=== PATIENT | female | born 1980 | race Caucasian/White ===

== ENCOUNTER 2017-10-24 11:47 | Emergency (ER) | payer MEDICARE, MEDICAID ==
[~2017-10-24] VITALS: Ht 5535.5 cm; Wt 102.0 kg
[~2017-10-24 11:47] MED LIST: CEPH-357 PO; CLIN-80 PO; CYCL-1 PO; HYDR-569 PO; IBUP-1986 PO; ONDA8TAB9 PO; PANT40TA39 PO; PHEN-824 PO; PRED50TA PO; WEL75T PO; ZIPR20CA2 PO
[2017-10-24] MEDS ORDERED: PRED5TAB PO (12:34)
[2017-10-24] MEDS ORDERED: AZIT250T PO (12:34)
[2017-10-24 13:05] VITALS: BP 125/92
== END 2017-10-24 13:07 | disposition home or self-care (01) ==
LOC: ER 11:47
DX: J02.9 Acute pharyngitis, unspecified (principal); J20.9 Acute bronchitis, unspecified; J01.10 Acute frontal sinusitis, unspecified; J01.00 Acute maxillary sinusitis, unspecified; Z91.040 Latex allergy status; Z79.899 Other long term (current) drug therapy
CPT/HCPCS: 99283

== ENCOUNTER 2018-01-13 18:47 | Emergency (ER) | payer MEDICARE, MEDICAID ==
[~2018-01-13] VITALS: Ht 167.6 cm; Wt 96.5 kg
[~2018-01-13 18:47] MED LIST changes: -CLIN-80 PO; +CLIN300C85 PO; +PRED5TAB PO
[2018-01-13] MEDS ORDERED: dexamethasone sod phosphate 10mg/ml inj IV STA (19:07)
[2018-01-13] MEDS ORDERED: famotidine/PF 10 mg/ml inj IV ONE (19:10)
[2018-01-13] MEDS ORDERED: normal saline 1000ML IV soln IVB ONE (19:10)
[2018-01-13] MEDS ORDERED: EPIN0.3P8 IM (19:26)
[2018-01-13] MEDS ORDERED: PRED20TA PO (19:26)
[2018-01-13 20:28] VITALS: BP 122/67
== END 2018-01-13 20:29 | disposition home or self-care (01) ==
LOC: ER 18:48
DX: T63.441A Toxic effect of venom of bees, accidental (unintentional), initial encounter (principal); Z88.0 Allergy status to penicillin; Z88.8 Allergy status to other drugs, medicaments and biological substances; Z88.1 Allergy status to other antibiotic agents; Z91.040 Latex allergy status
CPT/HCPCS: 93005; 96361; 96374; 96375; 99284; J1100; J3490; J7030

== ENCOUNTER 2018-02-19 06:49 | Emergency (ER) | payer MEDICARE, MEDICAID ==
[~2018-02-19] VITALS: Ht 578.2 cm; Wt 105.0 kg
[~2018-02-19 06:49] MED LIST changes: +EPIN0.3P8 IM
[2018-02-19] MEDS ORDERED: magnesium citrate 296ml oral solution PO ONE (07:05)
[2018-02-19] MEDS ORDERED: normal saline 1000ML IV soln IVB ONE ×2 (07:05→10:45)
[2018-02-19] MEDS ORDERED: diazepam 5mg tablet PO ONE (07:45)
[2018-02-19 08:13] LABS: CLARITY,URINE CLOUDY (Clear); COLOR,URINE STRAW (Yellow); GLUCOSE, URINE NEGATIVE (Neg); KETONES,URINE NEGATIVE (Neg); LEUKOCYTE ESTERASE ,URINE LARGE (Neg); NITRITES, URINE POSITIVE (Neg); OCCULT BLOOD,URINE LARGE (Neg); PROTEIN,URINE 30 mg/dl (Neg); URINE HCG NEGATIVE (NEG); UROBILINOGEN,URINE 0.2 E.U/dL (0.2-1.0)
[2018-02-19 08:17] LABS: UA COLLECTION TYPE VOIDED
[2018-02-19 08:22] LABS: BACTERIA,URINE 1+ /HPF (Neg); MUCUS STRANDS NONE SEEN /LPF (Neg); SQUAMOUS EPITHELIAL CELL,UR FEW /LPF (FEW); WBC CLUMPS,URINE MANY /HPF (NEGATIVE); WBC,URINE TNTC /HPF (0-4)
[2018-02-19] MEDS ORDERED: METH500T PO ×2 (09:08→11:59)
[2018-02-19] MEDS ORDERED: VAL5T PO ×2 (09:08→11:59)
[2018-02-19] MEDS ORDERED: CEPH-572 PO (09:20)
[2018-02-19] MEDS ORDERED: PHEN-716 PO ×2 (09:20→11:59)
[2018-02-19] MEDS ORDERED: ketorolac trometh. 30mg/ml inj. IV ONE (10:45)
[2018-02-19 11:07] LABS: BASOPHILS % (AUTO) 0.1 % (0-1); EOSINOPHILS % (AUTO) 0.2 % (0-6); HEMATOCRIT 37.4 % (35.0-45.0); LYMPHOCYTES # (AUTO) 1.2 X10'3 (1.1-4.8); LYMPHOCYTES % (AUTO) 7.5 % (21-51); MEAN CORPUSCULAR HEMOGLOBIN 28.5 PG (27.0-31.0); MEAN CORPUSCULAR HGB CONC 34.8 % (33.0-36.5); MEAN PLATELET VOLUME 7.3 FL (7.4-10.4); MONOCYTES # (AUTO) 0.7 X10'3 (0-0.9); MONOCYTES % (AUTO) 4.5 % (2-12); NEUTROPHILS # (AUTO) 13.7 X10'3 (1.8-7.7); NEUTROPHILS % (AUTO) 87.7 % (42-75); PLATELET COUNT 253 X10'3 (140-440); RED BLOOD COUNT 4.56 X10'6 (4.20-5.60); RED CELL DISTRIBUTION WIDTH 13.7 % (11.5-14.5); WHITE BLOOD COUNT 15.6 X10'3 (4.5-11.0)
[2018-02-19 11:22] LABS: ALANINE AMINOTRANSFERASE 34 U/L (12-78); ALBUMIN/GLOBULIN RATIO 0.8 (1.1-1.5); ALKALINE PHOSPHATASE 107 IU/L (46-116); ANION GAP 7 (8-16); ASPARTATE AMINO TRANSFERASE 25 U/L (10-37); BILIRUBIN,TOTAL 0.7 MG/DL (0.1-1.0); BLOOD UREA NITROGEN 12 MG/DL (7-18); BUN/CREATININE RATIO 10.4 (6.6-38.0); CHLORIDE 107 MMOL/L (99-107); CREATININE 1.15 MG/DL (0.40-0.90); GLUCOSE 94 MG/DL (70-104); LIPASE 92 U/L (73-393); POTASSIUM 4.6 MMOL/L (3.5-5.1); SODIUM 140 MMOL/L (135-145); TOTAL CARBON DIOXIDE 25.9 MMOL/L (24-32); TOTAL PROTEIN 6.8 G/DL (6.4-8.2); eGFR 54 ML/MIN
[2018-02-19 11:35] LABS: OCCULT BLOOD STOOL NEGATIVE (Neg)
[2018-02-19 11:36] VITALS: BP 107/68
[2018-02-19] MEDS ORDERED: LEVO500T2 PO (11:58)
[2018-02-19] MEDS ORDERED: FLO0.4C PO (11:58)
== END 2018-02-19 13:13 | disposition home or self-care (01) ==
LOC: ER 06:49
DX: S39.012A Strain of muscle, fascia and tendon of lower back, initial encounter (principal); M62.830 Muscle spasm of back; K59.00 Constipation, unspecified; N39.0 Urinary tract infection, site not specified; Z88.8 Allergy status to other drugs, medicaments and biological substances; Z91.040 Latex allergy status; Z79.899 Other long term (current) drug therapy; X58.XXXA Exposure to other specified factors, initial encounter; Y93.89 Activity, other specified; Y92.89 Other specified places as the place of occurrence of the external cause; Y99.8 Other external cause status
CPT/HCPCS: 36415; 74176; 80053; 81001; 81025; 82272; 83690; 85025; 87077; 87088; 87186; 96374; 99285; J1885; J7030